=== PATIENT | male | born 1990 ===

== ENCOUNTER 2021-05-19 17:29 | Emergency (ER) | payer OTHER ==
[~2021-05-19] VITALS: Ht 190.5 cm; Wt 79.5 kg
[2021-05-19 17:37] VITALS: BP 127/85
--- NOTE | 2021-05-19 18:20 | NUR ---
PATIENT CAME UP TO TRIAGE DOOR, STATES "I'M GOING TO [facility], I CALLED AND THEY CAN SEE ME NOW SINCE YOU GUYS ARE FULL." PATIENT AMBULATED WITH STEADY GAIT FROM ED WITH FRIEND.
== END 2021-05-19 18:24 | disposition left against medical advice (07) ==
LOC: ED 18:18
DX: Z04.89 Encounter for examination and observation for other specified reasons (principal)
CPT/HCPCS: 99281